=== PATIENT | female | born 1990 | race Asian ===

== ENCOUNTER 2021-08-30 15:19 | Emergency (ER) | payer OTHER ==
[~2021-08-30] VITALS: Ht 177.8 cm; Wt 68.4 kg
[2021-08-30 15:20] VITALS: BP 130/93
--- NOTE | 2021-08-30 15:49 | PHYS DOC ---
Past Medical History Past Medical History: No Pertinent History Past Surgical History: No Surgical History Smoking Status: Never Smoker Alcohol Use: None Drug Use: None General Adult EDM: Chief Complaint: BACK PAIN - NO INJURY HPI: HPI: Patient is a 31-year-old female that presents today with low back pain. Patient states that yesterday afternoon she was bending over to order picker something and felt a weird sensation in her lower back she then had pain into her right hip right thigh area, she said she took a dose of ibuprofen and put one of the [id number] Lidoderm patches on her back and that did not help with the pain so she presents today for further management. Patient denies any trauma, she states that she has been able to void without difficulty, and defecate without difficulty. Patient states she has not had a loss of bowel or bladder control. Review of Systems: Review of Systems: Constitutional: Denies fever or chills. [] Eyes: Denies change in visual acuity. [] HENT: Denies nasal congestion or sore throat. [] Respiratory: Denies cough or shortness of breath. [] Cardiovascular: Denies chest pain or edema. [] GI: Denies abdominal pain, nausea, vomiting, bloody stools or diarrhea. [] : Denies dysuria. [] Musculoskeletal: Low back pain right greater than left Integument: Denies rash. [] Neurologic: Denies headache, focal weakness or sensory changes. [] Endocrine: Denies polyuria or polydipsia. [] Lymphatic: Denies swollen glands. [] Psychiatric: Denies depression or anxiety. [] Heart Score: C/O Chest Pain: N/A Risk Factors: Risk Factors: DM, Current or recent (<one month) smoker, HTN, HLP, family history of CAD, obesity. Risk Scores: Score 0 - 3: 2.5% MACE over next 6 weeks - Discharge Home Score 4 - 6: 20.3% MACE over next 6 weeks - Admit for Clinical Observation Score 7 - 10: 72.7% MACE over next 6 weeks - Early Invasive Strategies Allergies: Allergies: Allergies Coded Allergies Type Severity Reaction Last Updated Verified No Known Drug Allergies 08/30/21 No Physical Exam: PE: Constitutional: Well developed, well nourished, no acute distress, non-toxic appearance. [] HENT: Normocephalic, atraumatic, bilateral external ears normal, oropharynx moist, no oral exudates, nose normal. [] Eyes: PERRLA, EOMI, conjunctiva normal, no discharge. [] Neck: Normal range of motion, no tenderness, supple, no stridor. [] Cardiovascular:Heart rate regular rhythm, no murmur [] Lungs & Thorax: Bilateral breath sounds clear to auscultation [] Abdomen: Bowel sounds normal, soft, no tenderness, no masses, no pulsatile masses. [] Skin: Warm, dry, no erythema, no rash. [] Back: Palpation of the low back shows tenderness over the iliac crest area no midline tenderness, no numbness or tingling noted in the low back patient ambulates without any deficits no foot drop no foot dragging Extremities: No tenderness, no cyanosis, no clubbing, ROM intact, no edema. [] Neurologic: Alert and oriented X 3, normal motor function, normal sensory function, no focal deficits noted. [] Psychologic: Affect normal, judgement normal, mood normal. [] Current Patient Data: Labs: Laboratory Tests Test 08/30/21 16:03 Bedside Urine HCG, Qualitative Hcg negative Current Medications Medications (Trade) Dose Ordered Sig/Balbina Route PRN Reason Start Time Stop Time Status Last Admin Dose Admin Ketorolac Tromethamine (Toradol Im) 60 mg 1X ONCE IM 08/30/21 16:15 08/30/21 16:16 DC Orphenadrine Citrate (Norflex) 60 mg 1X ONCE IM 08/30/21 16:15 08/30/21 16:16 DC Vital Signs: Vital Signs Date Time Temp Pulse Resp B/P (MAP) Pulse Ox O2 Delivery O2 Flow Rate FiO2 08/30/21 15:20 97.8 76 16 130/93 (105) 97 Room Air 97.8 EKG: EKG: [] Radiology/Procedures: Radiology/Procedures: [] Course & Med Decision Making: Course & Med Decision Making Pertinent Labs and Imaging studies reviewed. (See chart for details) Reassessment of patient shows she is sitting in a chair in no acute distress, we will treat her with Toradol and Norflex while here in the department, will send her home with some hydrocodone's, Motrin, and Flexeril. She does not currently have a primary care physician we will give her a list of community resources and also some physicians for the [facility] clinics so that she may follow-up for further management of her back pain. She will need to take the medications as prescribed, ice to the affected area 20 minutes on 3-4 times daily. Strict return precautions that if she has any loss of bowel or bladder control or unable to void or defecate that she should return here to the emergency department. Jeremy Disclaimer: Jeremy Disclaimer: This electronic medical record was generated, in whole or in part, using a voice recognition dictation system. Departure Departure Impression: Primary Impression: Acute myofascial strain of lumbar region Qualified Codes: S39.012A - Strain of muscle, fascia and tendon of lower back, initial encounter Disposition: HOME / SELF CARE / HOMELESS Condition: STABLE Patient Instructions: Back Exercises, Back Pain, Adult Additional Instructions: Hydrocodone take 1 tablet every 6 hours as needed for severe pain, use with caution may cause constipation or may cause drowsiness unable to drive while taking this medication Motrin 600 mg take 1 tablet every 6 hours as needed for mild to moderate pain. Take with food and may cause stomach upset if taken by itself. Flexeril 10 mg take 1 tablet every 8 hours as needed for muscle spasms, use with caution may cause drowsiness or dizziness. Ice 20 minutes on 3-4 times daily to help with swelling and localized pain relief. Follow-up with your primary care physician, one of the [facility] clinics listed in the brochure, or one of the community resources clinic listed in the brochure for further management of your back pain. Return to the emergency department if you have increased back pain not relieved by the pain medications above, you have loss of bowel or bladder control or you are unable to void or defecate, or he having numbness or tingling in your legs. Scripts Hydrocodone Bit/Acetaminophen (HYDROCODONE-APAP 5-325 ) 1 Tab Tablet 1 TAB PO PRN Q6HRS PRN for PAIN, #10 TAB 0 Refills Prov: SHANE BARROS APRN 08/30/21 Ibuprofen (IBUPROFEN) 600 Mg Tablet 600 MG PO PRN Q6HRS PRN for INFLAMMATION, #30 TAB Prov: SHANE BARROS TAX ACCOUNTING ASSISTANT 08/30/21 Cyclobenzaprine Hcl (CYCLOBENZAPRINE HCL) 10 Mg Tablet 10 MG PO TID PRN PRN for MUSCLE SPASMS, #14 TAB Prov: SHANE BARROS APRN 08/30/21 SHANE BARROS APRN Aug 30, 2021 15:49
[2021-08-30] MEDS ORDERED: KETOROLAC 60 MG/2 ML VIAL. IM ONE (16:15)
[2021-08-30] MEDS ORDERED: ORPHENADRINE CITRATE 60 MG/2 ML VIAL. IM ONE (16:15)
[2021-08-30] MEDS ORDERED: CYCL10TA19 PO (16:22)
[2021-08-30] MEDS ORDERED: HYDR-2761 PO (16:22)
[2021-08-30] MEDS ORDERED: IBUP-1007 PO (16:22)
== END 2021-08-30 16:29 | disposition home or self-care (01) ==
LOC: ER 15:19
DX: S39.012A Strain of muscle, fascia and tendon of lower back, initial encounter (principal); M25.551 Pain in right hip; M79.651 Pain in right thigh; X50.9XXA Other and unspecified overexertion or strenuous movements or postures, initial encounter; Y93.89 Activity, other specified; Y92.89 Other specified places as the place of occurrence of the external cause; Y99.8 Other external cause status
CPT/HCPCS: 81025; 96372; 99284; J1885; J2360

== ENCOUNTER 2021-09-20 15:26 | Emergency (ER) | payer OTHER ==
[~2021-09-20] VITALS: Ht 177.8 cm; Wt 68.0 kg
[~2021-09-20 15:26] MED LIST: CYCL10TA19 PO; HYDR-2761 PO; IBUP-1007 PO
[2021-09-20 15:45] VITALS: BP 118/81
[2021-09-20] MEDS ORDERED: KETOROLAC 30 MG/ML VIAL. IM ONE (16:15)
[2021-09-20] MEDS ORDERED: HYDROcodone/APAP 5/325MG 1 TAB TABLET PO ONE (16:15)
[2021-09-20 17:05] LABS: BILIRUBIN,URINE NEGATIVE (NEG); CLARITY,URINE CLEAR; COLOR,URINE YELLOW; NITRITE,URINE NEGATIVE (NEG); PROTEIN,URINE NEGATIVE (NEG-TRACE); UROBILINOGEN,URINE 0.2 mg/dL (0.2 mg/dL)
[2021-09-20 17:08] LABS: BACTERIA,URINE MOD /HPF (0-FEW); WBC,URINE >40 /HPF (0-4)
--- NOTE | 2021-09-20 17:32 | RAD ---
Lumbar spine 3 views HISTORY: Back pain radiating to right leg 3 views were taken of the lumbar spine. There is scoliosis convex to the right. There is no acute lum bar fracture. Lumbar spines in normal alignment on the lateral view. IMPRESSION: 1. Scoliosis. 2. No fracture or other acute osseous abnormality in the lumbar spine. Electronically signed by: Omar Brooks MD (09/20/2021 5:29 PM) [id number]
[2021-09-20] MEDS ORDERED: CYCL5TAB PO (17:50)
[2021-09-20] MEDS ORDERED: KETO10TA PO (17:50)
[2021-09-20] MEDS ORDERED: SULF1TAB24 PO (17:50)
--- NOTE | 2021-09-20 17:50 | PHYS DOC ---
Past Medical History Past Medical History: No Pertinent History Past Surgical History: No Surgical History Smoking Status: Never Smoker Alcohol Use: None Drug Use: None Adult General Chief Complaint Chief Complaint: LOWER BACK PAIN OR INJURY HPI HPI Patient is a 31 year old female who presents with right lower back pains been present off and on for the last week or so. Pain does not radiate into the abdomen or groin area but does at times go down the outer aspect of the right thigh. She is not had any fever, dysuria or blood in her urine. No recent trauma. No recent injury. No bladder or bowel incontinence. Review of Systems Review of Systems Constitutional: Denies fever Eyes: Denies change in visual acuity or eye pain HENT: Denies sore throat Respiratory: Denies shortness of breath Cardiovascular: Denies chest pain GI: Denies abd pain : Denies dysuria Musculoskeletal: Denies back or extremity injury Integument: Denies rash or skin lesions Neurologic: Denies headache, focal weakness or sensory changes All other systems were reviewed and found to be within normal limits, except as documented in this note. Current Medications Current Medications Current Medications Medications (Trade) Dose Ordered Sig/Balbina Start Time Stop Time Status Last Admin Dose Admin Acetaminophen/ Hydrocodone Bitart (Lortab 5/325) 2 tab 1X ONCE 09/20/21 16:15 09/20/21 16:17 DC 09/20/21 17:07 2 TAB Ketorolac Tromethamine (Toradol 30mg Vial) 30 mg 1X ONCE 09/20/21 16:15 09/20/21 16:16 DC 09/20/21 17:03 30 MG Allergies Allergies Allergies Coded Allergies Type Severity Reaction Last Updated Verified No Known Drug Allergies 08/30/21 No Physical Exam Physical Exam Constitutional: Well developed, well nourished, no acute distress, non-toxic appearance. HENT: Normocephalic, atraumatic, bilateral external ears normal, mucosa moist, nose normal. Eyes: EOMI, conjunctiva normal, no discharge. Neck: Normal range of motion, supple, no stridor, no meningeal signs. Cardiovascular: Regular rate and rhythm Lungs & Thorax: Bilateral breath sounds clear to auscultation Abdomen: Soft, no tenderness or obvious masses Skin: Warm, dry, no erythema, no rash. Extremities: No tenderness, no cyanosis, no clubbing, ROM intact, no edema. Neurologic: Alert and oriented, normal motor function, normal sensory function, no focal deficits noted. Psychologic: Affect normal, judgement normal, mood normal. Current Patient Data Vital Signs Vital Signs Date Time Temp Pulse Resp B/P (MAP) Pulse Ox O2 Delivery O2 Flow Rate FiO2 09/20/21 17:07 16 98 09/20/21 15:45 98.4 78 118/81 (93) Room Air 98.4 Lab Values Laboratory Tests Test 09/20/21 16:16 09/20/21 16:41 Urine Collection Type Unknown Urine Color Yellow Urine Clarity Clear Urine pH 6.0 (<5.0-8.0) Urine Specific [place] 1.020 (1.000-1.030) Urine Protein Negative mg/dL (NEG-TRACE) Urine Glucose (UA) Negative mg/dL (NEG) Urine Ketones (Stick) Negative mg/dL (NEG) Urine Blood Trace (NEG) Urine Nitrite Negative (NEG) Urine Bilirubin Negative (NEG) Urine Urobilinogen Dipstick 0.2 mg/dL (0.2 mg/dL) Urine Leukocyte Esterase Small (NEG) Urine RBC 3-5 /HPF (0-2) Urine WBC >40 /HPF (0-4) Urine Squamous Epithelial Cells Mod /LPF Urine Bacteria Mod /HPF (0-FEW) POC Urine HCG, Qualitative Hcg negative (Negative) EKG EKG [] Radiology/Procedures Radiology/Procedures [] Impressions: PATIENT: ALISSON BUCKLEYCCOUNT: [id number]#: [id number] : 1990 LOCATION: ER AGE: 31 SEX: F EXAM STATUS: PRE ER ORD. PHYSICIAN: DELIO MALDONADO MD REASON: back pain raditing to R leg PROCEDURE: LUMBAR SPINE 2-3V Lumbar spine 3 views HISTORY: Back pain radiating to right leg 3 views were taken of the lumbar spine. There is scoliosis convex to the right. There is no acute lumbar fracture. Lumbar spines in normal alignment on the lateral view. IMPRESSION: 1. Scoliosis. 2. No fracture or other acute osseous abnormality in the lumbar spine. Electronically signed by: Omar Brooks MD (09/20/2021 5:29 PM) [id number] DICTATED and SIGNED BY: OMAR BROOKS MD DATE: 09/20/21 [id number] 0 Course & Med Decision Making Course & Med Decision Making Pertinent Labs and Imaging studies reviewed. (See chart for details) [] Is a 31-year-old female with low back pain. On x-ray she has some scoliosis present without any acute bony abnormality otherwise. Urinalysis shows some bacteria in her urine. We will put her on Bactrim for 3 days and then continue with Flexeril and Toradol for a few days. We will give her follow-up with orthopedics, she stable for discharge. Dragon Disclaimer Dragon Disclaimer This electronic medical record was generated, in whole or in part, using a voice recognition dictation system. Departure Departure Impression: Primary Impression: Low back pain Additional Impression: Bacteriuria Disposition: HOME / SELF CARE / HOMELESS Condition: STABLE Referrals: NO PCP (PCP) MAURICIO BUCKLEY MD Patient Instructions: Asymptomatic Bacteriuria, Female, Back Pain, Adult Scripts Sulfamethoxazole/Trimethoprim (BACTRIM DS TABLET) 1 Each Tablet 1 TAB PO BID for 3 Days, #6 TAB 0 Refills Prov: DELIO MALDONADO MD 09/20/21 Ketorolac Tromethamine (KETOROLAC TROMETHAMINE) 10 Mg Tablet 1 TAB PO TID PRN for PAIN, #10 TAB Prov: DELIO MALDONADO MD 09/20/21 Cyclobenzaprine Hcl (CYCLOBENZAPRINE HCL) 5 Mg Tablet 5 MG PO PRN TID PRN for PAIN, #15 TAB Prov: DELIO MALDONADO MD 09/20/21 Problem Qualifiers DELIO MALDONADO MD Sep 20, 2021 17:50
== END 2021-09-20 18:22 | disposition home or self-care (01) ==
LOC: ER 15:26
DX: M54.50 Low back pain, unspecified (principal); R82.71 Bacteriuria
CPT/HCPCS: 72100; 81001; 81025; 96372; 99284; J1885

== ENCOUNTER → 2021-09-24 | Outpatient (CLI) | payer OTHER ==
[2021-09-20 15:45] VITALS: BP 118/81
[~2021-09-24] MED LIST changes: +CYCL5TAB PO; +KETO10TA PO; +SULF1TAB24 PO
--- NOTE | 2021-09-24 10:56 | RAD ---
MRI lumbar spine without contrast HISTORY: Lumbar pain. Comparisons: Lumbar spine x-rays September 20, 2021 FINDINGS: Well-formed lumbosacral junction the most inferior lumbar type vertebra is classified L5. L umbar vertebral body height and alignment intact. No bone marrow edema evident. There is dextroconvex thoracolumbar scoliosis. Conus terminates at the T12 thoracic vertebral level. The cauda equina is n ormal. Paraspinal tissues are normal. Disc disease as described below. L1-L2: Normal. L2-L3: Normal. L3-L4: Slight disc desiccation and posterior disc height loss. No disc bulge or herniation. Mild face t hypertrophy and facet joint fluid. No spinal canal stenosis. No neural foraminal stenosis. L4-L5: Disc desiccation, posterior disc height loss, disc bulge with superimposed central and left pa racentral broad-based disc protrusion and mild facet hypertrophy and spurring. Moderate right neural foraminal stenosis. Mild left neural foraminal stenosis. Moderate spinal canal stenosis midline dural sac diameter is 8 mm. There is moderate narrowing of the left lateral recess by the disc protrusion which impinges the descending left L5 nerve roots. L5-S1: Normal. IMPRESSION: Lumbar scoliosis. Lower lumbar disc disease and facet arthritis, this is most notable at L4-L5 with a disc bulge with central disc protrusion and facet arthropathy contributing to moderate s fallon canal stenosis, moderate left lateral recess stenosis and [id number] neural foraminal jennifer noses as described above. Electronically signed by: Rei Rodriguez MD (09/24/2021 10:53 AM) [facility]
== END ==
LOC: MRI 09:33
PROVIDERS: ATTEND Nurse Practitioner
DX: M47.816 Spondylosis without myelopathy or radiculopathy, lumbar region (principal); M51.36 Other intervertebral disc degeneration, lumbar region; M41.85 Other forms of scoliosis, thoracolumbar region; M51.26 Other intervertebral disc displacement, lumbar region; M48.8X6 Other specified spondylopathies, lumbar region; M48.061 Spinal stenosis, lumbar region without neurogenic claudication
CPT/HCPCS: 72148